=== PATIENT | female | born 1995 | race Caucasian/White ===

== ENCOUNTER 2018-01-16 18:00 | Emergency (ER) | payer MEDICAID ==
[2018-01-16] MEDS ORDERED: TYLENOL 325 MG PO STA (18:41)
--- NOTE | 2018-01-16 18:41 | ERPHSYRPT ---
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 Triage Nursing Assessment: pt is aox3, pupils perrl, resps easy and non labored , pt afebrile, slight swelling noted to the distal right ankle. pedal pulses are strong and regular bilat. cap refill < 3 seconds. pt sensation intact to bilat lower extremities. skin is pink warm dry. ROM is limited due to pain. Physician History: PATIENT IS 5 WEEKS GESTATION SLIPPED IN HER DRIVEWAY, FELL AND SUSTAINED INJURY TO OUTER ASPECT TO RIGHT ANKLE AND MID TO DISTAL DOWNS, 2 HOURS PRIOR TO ARRIVAL. HAS PAIN UPON WEIGHT BEARING. DENIES HEAD, NECK OR BACK INJURY. Method of Injury: twisted Occurred: just prior to arrival Quality: constant Severity of Pain-Max: moderate Severity of Pain-Current: moderate Lower Extremities Pain: leg: right, ankle: right Modifying Factors: Improves With: movement Associated Symptoms: unable to bear weight Allergies/Adverse Reactions: latex Allergy (Verified 01/16/18 18:21) Hx Tetanus, Diphtheria Vaccination/Date Given: No Hx Influenza Vaccination/Date Given: No Hx Pneumococcal Vaccination/Date Given: No Immunizations Up to Date: Yes - Review of Systems Constitutional: No Fever, No Chills Eyes: No Symptoms Ears, Nose, & Throat: No Symptoms Respiratory: No Cough, No Dyspnea Cardiac: No Chest Pain, No Edema, No Syncope Abdominal/Gastrointestinal: No Abdominal Pain, No Nausea, No Vomiting, No Diarrhea Genitourinary Symptoms: No Dysuria Musculoskeletal: Injury, Joint Pain, Joint Swelling, No Back Pain, No Neck Pain Skin: No Rash Neurological: No Dizziness, No Focal Weakness, No Sensory Changes Psychological: No Symptoms Endocrine: No Symptoms All Other Systems: Reviewed and Negative - Past Medical History Pertinent Past Medical History: Yes Endocrine Medical History: Hypoglycemia - Past Surgical History Past Surgical History: Yes Female Surgical History: Section - Social History Smoking Status: Never smoker Drug Use: none Patient Lives Alone: No - Female History Hx Now: Yes (5 wks ) - Nursing Vital Signs Nursing Vital Signs: Initial Vital Signs Temperature 98.1 F 01/16/18 18:08 Pulse Rate 83 01/16/18 18:08 Respiratory Rate 20 01/16/18 18:08 Blood Pressure 110/65 01/16/18 18:08 O2 Sat by Pulse Oximetry 99 01/16/18 18:08 Pain Scale Pain Intensity 8 - Physical Exam General Appearance: no apparent distress Ankle Exam: right ankle: limited range of motion, soft tissue tenderness, swelling (PERILATERAL MALLEOLUS, NEGATIVE JOINT LAXITY , RIGHT PEDIS PULSE 2+) Mental Status Exam: alert SpO2: 99 Oxygen Delivery: Room Air - Radiology Exams Right Ankle X-ray Interpretation: Interpreted by me (SOFT TISSUE SWELLING, OLD TINY AVULSION FRACTURE RIGHT MEDAIL MALLEOLUS) Ordered Tests: Active Orders 24 hr Category Date Time Status Crutches STAT Care 01/16/18 19:26 Active Splint STAT Care 01/16/18 19:26 Active ANKLE (3 VIEWS) Stat Exams 01/16/18 18:35 Taken LOWER LEG Stat Exams 01/16/18 18:37 Taken Medication Summary Discontinued Medications Generic Name Dose Route Start Last Admin Trade Name Freq PRN Reason Stop Dose Admin Acetaminophen 650 mg 01/16/18 18:41 01/16/18 18:46 Tylenol 325 Mg PO 01/16/18 18:42 650 mg STAT STA Administration Acetaminophen Confirm 01/16/18 18:45 Tylenol 325 Mg Administered 01/16/18 18:46 Dose 650 mg .ROUTE .STK-MED ONE - Progress Progress: improved Progress Note: 01/16/18 20:16 ADMINISTERED TYLENOL 650MG ORALLY, APPLICATION VELCRO ANKLE SPLINT, FITTED FOR CRUTCHES Counseled pt/family regarding: diagnosis, need for follow-up, rad results - Departure Time of Disposition: 20:20 Departure Disposition: Home Clinical Impression: RIGHT ANKLE STRAIN Condition: Stable Critical Care Time: No Referrals: KM LAZCANO [Primary Care Provider] - Additional Instructions: TYLENOL EVERY 4 HOURS NEEDED FOR PAIN. AMBULATE NONWEIGHT BEARING RIGHT FOOT FOR 5-7 DAYS, ELEVATE FOOT AND APPLY ICE BELOW AND ABOVE ANKLE SWELLING EVERY 4 HOURS, 30 MINUTES FOR 48 HOURS. CONSULT YOUR PRIMARY CARE PROVIDER FOR FOLLOWUP IN 1 WEEK.
[2018-01-16] MEDS ORDERED: TYLENOL 325 MG ONE (18:45)
[2018-01-16 20:25] VITALS: BP 128/93; PULSE 80; O2SAT 98
--- NOTE | 2018-01-16 21:06 | XRAY ---
Indication: Pain and swelling following fall. Comparison: None 2 views of the right lower leg obtained. No bony, articular, or soft tissue abnormalities.
--- NOTE | 2018-01-16 21:08 | XRAY ---
Indication: Pain and swelling following fall. Comparison: None 3 views of the right ankle demonstrates medial malleolar tip accessory ossicle and mild soft tissue swelling. No other bony, articular, or soft tissue abnormalities.
== END 2018-01-16 20:27 | disposition home or self-care (01) ==
LOC: ED 18:00
DX: S96.911A Strain of unspecified muscle and tendon at ankle and foot level, right foot, initial encounter (principal); W01.0XXA Fall on same level from slipping, tripping and stumbling without subsequent striking against object, initial encounter
CPT/HCPCS: 73590; 73610; 99283; A9270-GY

== ENCOUNTER 2023-10-13 08:55 | Observation (INO) | payer OTHER ==
[2023-10-13] MEDS ORDERED: Sodium Chloride 0.9% 1000 ML 1,000 ML IV STA (09:20)
[2023-10-13] MEDS ORDERED: Zofran 4 MG/2 ML VIAL IV ONE (09:20)
[2023-10-13] MEDS ORDERED: TORAdol 30 mg Injection IV ONE (09:22)
[2023-10-13] MEDS ORDERED: Zofran 4 MG/2 ML VIAL ONE (09:29)
[2023-10-13] MEDS ORDERED: Sodium Chloride 0.9% 1000 ML 1,000 ML ONE ×2 (09:30→10:52)
[2023-10-13] MEDS ORDERED: TORAdol 30 mg Injection ONE (09:30)
[2023-10-13 09:37] LABS: Absolute Neutrophil Ct (ANC) 10.33 x10^3/uL (1.4-6.9); BASOPHIL % 0.2 % (0.0-0.4); Basophil (Absolute #) 0.02 x10^3/uL (0-0.4); Eosinophil (Absolute #) 0 x10^3/uL (0-0.5); Hemoglobin 13.7 g/dL (12.0-16.0); IMMATURE GRAN # 0.05 x10^3u/L (0.00-0.03); IMMATURE GRAN % 0.4 % (0.00-0.4); Lymphocyte (Absolute #) 0.39 x10^3/uL (1.0-4.6); Lymphocytes % 3.4 % (24.0-44.0); Mean Cell Volume 102.5 fL (78-100); Mean Corpuscular Hemoglobin 34.3 pg (26-32); Mean Corpuscular Hgb Concent. 33.4 g/dL (32-36); Mean Platelet Volume 10.6 fL (7.5-11.0); Monocyte (Absolute #) 0.63 x10^3/uL (0.0-1.3); Monocytes % 5.5 % (0.0-12.0); Neutrophil % 90.5 % (36.0-66.0); Platelet Count 179 x10^3/uL (150-450); Red Cell Distribution Width 12.4 % (11.5-14.0); White Blood Count 11.4 x10^3/uL (4.0-10.5)
[2023-10-13 09:51] LABS: ALBUMIN 3.8 g/dL (3.5-5.0); ANION GAP 11.9 MEQ/L (5-15); BILIRUBIN,TOTAL 1.3 mg/dL (0.2-1.3); Calcium 8.7 mg/dL (8.4-10.2); Creatinine 1 1.04 mg/dL (0.52-1.04); EST GLOMERULAR FILTRATION RATE 75.6 ML/MIN; Potassium 3.4 mmol/L (3.5-5.1); Total Protein 6.9 g/dL (6.3-8.2)
[2023-10-13 10:14] LABS: INFLUENZA A NEGATIVE (NEGATIVE); INFLUENZA B NEGATIVE (NEGATIVE); RESPIRATORY SYNCTIAL VIRUS NEGATIVE (NEGATIVE); SARS-CoV-2 Xpert Express NEGATIVE (NEGATIVE)
[2023-10-13 11:06] LABS: HCG SERUM TEST NEGATIVE (NEGATIVE)
[2023-10-13] MEDS ORDERED: Sodium Chloride 0.9% 1000 ML 1,000 ML IV SCH (11:15)
--- NOTE | 2023-10-13 12:15 | XRAY ---
Indication: Left abdomen pain. Nausea and vomiting. Multiple contiguous axial images obtained through abdomen and pelvis without contrast. Comparison: None Lung bases demonstrate minimal dependent atelectasis. Heart not enlarged. Noncontrasted stomach and bowel loops appear nonobstructed. Appendix not visualized. Spleen is enlarged measuring 13.7 cm. No free fluid/air. Left kidney demonstrates 1.3 cm nonobstructing calculus inferiorly. Also left renal edema with minimal perinephric stranding favoring underlying nephritis. Remaining liver, gallbladder, pancreas, spleen, adrenal glands, kidneys, ureters, bladder, uterus, and aorta are unremarkable for noncontrast exam. Osseous structures intact. Impression: 1. Left renal edema with stranding. Rule out nephritis. Also nonobstructing left renal calculus. 2. Incidental splenomegaly. 3. Remaining CT abdomen/pelvis without contrast exam is negative.
--- NOTE | 2023-10-13 12:27 | ERPHSYRPT ---
- History of Present Illness Time Seen by Provider: 10/13/23 09:10 Historian: patient Exam Limitations: no limitations Patient Subjective Stated Complaint: abdominal pain Triage Nursing Assessment: patient reports headache started 10/12/23 around noon then soon after started having nausea and vomiting, no diarrhea. has been vomiting intermittently ever since Physician History: Patient is a 28-year-old female presents to emergency department for evaluation of nausea vomiting x 2 days. Patient now complains of pain to her left flank. Pain described as an ache that is localized. No radiation. No specific worsening or improving factors. Patient reports symptoms as intermittent. Patient denies a history of the same. Patient states she has been feeling "warm" no objective fevers. Symptoms are moderate in intensity. No specific worsening improving factors. Patient voices no other complaints or concerns at this time. Portions of this note were created with voice recognition technology. There may be grammatical, spelling, punctuation or sound alike errors. Timing/Duration: day(s) (2 days ago) Activities at Onset: none Quality: aching Abdominal Pain Onset Location: flank Pain Radiation: no radiation Severity of Pain-Max: moderate Severity of Pain-Current: mild Modifying Factors: Improves With: nothing Associated Symptoms: nausea, vomiting Previous symptoms: no prior history Allergies/Adverse Reactions: latex Allergy (Verified 10/13/23 09:12) Home Medications: No Reportable Medications [No Reported Medications] 10/13/23 [History] Hx Tetanus, Diphtheria Vaccination/Date Given: No Hx Influenza Vaccination/Date Given: No Hx Pneumococcal Vaccination/Date Given: No Travel Risk - International Travel Have you traveled outside of the country in past 3 weeks: No - Coronavirus Screening Are you exhibiting any of the following symptoms?: Yes Symptoms: Vomiting/Diarrhea, Headaches/Body Aches/Fatigue Close contact with a COVID-19 positive Pt in past 14-21 Days: No - Vaccine Status Have you recieved a Covid-19 vaccination: No - Review of Systems Constitutional: No Symptoms, No Fever, No Chills Eyes: No Symptoms Ears, Nose, & Throat: No Symptoms Respiratory: No Symptoms, No Cough, No Dyspnea Cardiac: No Symptoms, No Chest Pain, No Edema, No Syncope Abdominal/Gastrointestinal: No Symptoms, No Abdominal Pain, No Nausea, No Vomiting, No Diarrhea Genitourinary Symptoms: No Symptoms, No Dysuria Musculoskeletal: No Symptoms, No Back Pain, No Neck Pain Skin: No Symptoms, No Rash Neurological: No Symptoms, No Dizziness, No Focal Weakness, No Sensory Changes Psychological: No Symptoms Endocrine: No Symptoms Hematologic/Lymphatic: No Symptoms Immunological/Allergic: No Symptoms All Other Systems: Reviewed and Negative - Past Medical History Pertinent Past Medical History: Yes Endocrine Medical History: Hypoglycemia - Past Surgical History Past Surgical History: Yes Female Surgical History: Section - Social History Smoking Status: Never smoker Exposure to second hand smoke: No Drug Use: none Patient Lives Alone: No - Female History Hx Now: No - Nursing Vital Signs Nursing Vital Signs: Initial Vital Signs Temperature 100 F 10/13/23 09:01 Pulse Rate 116 H 10/13/23 09:01 Respiratory Rate 18 10/13/23 09:01 Blood Pressure 117/80 10/13/23 09:01 O2 Sat by Pulse Oximetry 96 10/13/23 09:01 Pain Scale Pain Intensity 8 - Physical Exam General Appearance: no apparent distress, alert Eye Exam: PERRL/EOMI, eyes nml inspection Ears, Nose, Throat Exam: normal ENT inspection, pharynx normal, moist mucous membranes Neck Exam: normal inspection, non-tender, supple, full range of motion Respiratory Exam: normal breath sounds, lungs clear, airway intact, No respiratory distress Cardiovascular Exam: regular rate/rhythm, normal heart sounds, normal peripheral pulses Gastrointestinal/Abdomen Exam: soft, tenderness (Left CVA tenderness), No mass Back Exam: normal inspection, normal range of motion, No CVA tenderness, No vertebral tenderness Extremity Exam: normal inspection, normal range of motion, pelvis stable Neurologic Exam: alert, oriented x 3, cooperative, 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, normal mood/affect, nml cerebellar function, sensation nml, No motor deficits Skin Exam: normal color, warm, dry SpO2 Interpretation: normal SpO2: 97 O2 Delivery: Room Air - Course Nursing assessment & vital signs reviewed: Yes - CT Exams Abdomen/Pelvis CT Interpretation: Tele-radiologist Report (Enlarged spleen, appendix not seen, left kidney nephrolithiasis, left kidney edema with minimal associated stranding) Ordered Tests: Active Orders 24 hr Category Date Time Status IV Insertion STAT Care 10/13/23 09:20 Active ABDOMEN AND PELVIS W/0 CONTRAS [CT] Stat Exams 10/13/23 09:21 Completed CBC W DIFF Stat Lab 10/13/23 09:30 Completed CMP Stat Lab 10/13/23 09:30 Completed CULTURE,URINE Stat Lab 10/13/23 12:29 Received HCG QUALITATIVE, SERUM Stat Lab 10/13/23 09:30 Completed HCG QUALITATIVE, URINE Stat Lab 10/13/23 12:49 Completed LIPASE Stat Lab 10/13/23 09:30 Completed Lactic Acid Stat Lab 10/13/23 13:33 Ordered TROPONIN Q4H Lab 10/13/23 09:30 Completed TROPONIN Q4H Lab 10/13/23 13:30 Ordered TROPONIN Q4H Lab 10/13/23 17:30 Ordered UA W/RFX UR CULTURE Stat Lab 10/13/23 12:29 Completed Medication Summary Generic Name Dose Route Start Last Admin Trade Name Barrett PRN Reason Stop Dose Admin Sodium Chloride 1,000 mls @ 150 mls/hr 10/13/23 11:15 10/13/23 11:05 Sodium Chloride 0.9% 1000 Ml IV 11/12/23 11:14 150 mls/hr .Q6H40M ANETTE Administration Ceftriaxone Sodium/Dextrose 1 g in 50 mls @ 100 mls/hr 10/13/23 13:31 Rocephin 1 Gm-D5w 50 Ml Bag IV 10/13/23 14:00 STAT STA Discontinued Medications Generic Name Dose Route Start Last Admin Trade Name Barrett PRN Reason Stop Dose Admin Sodium Chloride 1,000 mls @ 999 mls/hr 10/13/23 09:20 10/13/23 13:18 Sodium Chloride 0.9% 1000 Ml IV 10/13/23 10:20 Infused .Q1H1M STA Infusion Sodium Chloride Confirm 10/13/23 09:30 Sodium Chloride 0.9% 1000 Ml Administered 10/13/23 09:31 Dose 1,000 mls @ ud .ROUTE .STK-MED ONE Sodium Chloride Confirm 10/13/23 10:52 Sodium Chloride 0.9% 1000 Ml Administered 10/13/23 10:53 Dose 1,000 mls @ ud .ROUTE .STK-MED ONE Ketorolac Tromethamine 30 mg 10/13/23 09:22 10/13/23 09:35 Ketorolac Tromethamine 30 Mg/Ml Inj IV 10/13/23 09:23 30 mg STAT ONE Administration Ketorolac Tromethamine Confirm 10/13/23 09:30 Ketorolac Tromethamine 30 Mg/Ml Inj Administered 10/13/23 09:31 Dose 30 mg .ROUTE .STK-LIANAI ONE Ondansetron HCl 4 mg 10/13/23 09:20 10/13/23 09:35 Ondansetron Hcl 4 Mg/2 Ml Vial IV 10/13/23 09:21 4 mg STAT ONE Administration Ondansetron HCl Confirm 10/13/23 09:29 Ondansetron Hcl 4 Mg/2 Ml Vial Administered 10/13/23 09:30 Dose 4 mg .ROUTE .K-MED ONE Lab/Rad Data: Laboratory Result Diagrams 10/13/23 09:30 10/13/23 09:30 Laboratory Results 10/13/23 10/13/23 10/13/23 Range/Units 12:49 12:29 09:30 WBC (4.0-10.5) x10^3/uL RBC (4.1-5.4) x10^6/uL Hgb (12.0-16.0) g/dL Hct (35-47) % MCV (78-100) fL MCH (26-32) pg MCHC (32-36) g/dL RDW (11.5-14.0) % Plt Count (150-450) x10^3/uL MPV (7.5-11.0) fL Gran % (36.0-66.0) % Immature Gran % (Auto) (0.00-0.4) % Nucleat RBC Rel Count (0.00-0.1) % Eos # (Auto) (0-0.5) x10^3/uL Immature Gran # (Auto) (0.00-0.03) x10^3u/L Absolute Lymphs (auto) (1.0-4.6) x10^3/uL Absolute Monos (auto) (0.0-1.3) x10^3/uL Absolute Nucleated RBC (0.00-0.01) x10^3u/L Lymphocytes % (24.0-44.0) % Monocytes % (0.0-12.0) % Eosinophils % (0.00-5.0) % Basophils % (0.0-0.4) % Absolute Granulocytes (1.4-6.9) x10^3/uL Basophils # (0-0.4) x10^3/uL Sodium (137-145) mmol/L Potassium (3.5-5.1) mmol/L Chloride (98-107) mmol/L Carbon Dioxide (22-30) mmol/L Anion Gap (5-15) MEQ/L BUN (7-17) mg/dL Creatinine (0.52-1.04) mg/dL Estimated GFR ML/MIN Glucose (74-106) mg/dL Calcium (8.4-10.2) mg/dL Total Bilirubin (0.2-1.3) mg/dL AST (14-36) U/L ALT (0-35) U/L Alkaline Phosphatase (38-126) U/L Troponin I (0.000-0.034) ng/mL Serum Total Protein (6.3-8.2) g/dL Albumin (3.5-5.0) g/dL Lipase (23-300) U/L Serum HCG, Qual NEGATIVE (NEGATIVE) Urine Color Yellow (Yellow) Urine Appearance Cloudy A (Clear) Urine pH 6.0 (4.6-8.0) Ur Specific [place] 1.010 (1.005-1.030) Urine Protein 30 (Negative) Urine Glucose (UA) Negative (Negative) mg/dL Urine Ketones 15 A (Negative) Urine Blood Moderate A (Negative) Urine Nitrite Positive A (Negative) Urine Bilirubin Negative (Negative) Urine Urobilinogen 1.0 A (0.2) mg/dL Ur Leukocyte Esterase Large A (Negative) U Hyaline Cast (Auto) 3-5 A (0-2) /LPF Urine Microscopic RBC 0-2 (0-5) /HPF Urine Microscopic WBC 51-100 A (0-5) /HPF Ur Epithelial Cells Few (None Seen) /HPF Urine Bacteria Many A (None Seen) /HPF Urine Culture Reflexed YES (NO) Urine HCG, Qual NEGATIVE (NEGATIVE) Influenza Type A Ag (NEGATIVE) Influenza Type B Ag (NEGATIVE) RSV (PCR) (NEGATIVE) SARS-CoV-2 (PCR) (NEGATIVE) 10/13/23 10/13/23 10/13/23 Range/Units 09:30 09:30 09:30 WBC (4.0-10.5) x10^3/uL RBC (4.1-5.4) x10^6/uL Hgb (12.0-16.0) g/dL Hct (35-47) % MCV (78-100) fL MCH (26-32) pg MCHC (32-36) g/dL RDW (11.5-14.0) % Plt Count (150-450) x10^3/uL MPV (7.5-11.0) fL Gran % (36.0-66.0) % Immature Gran % (Auto) (0.00-0.4) % Nucleat RBC Rel Count (0.00-0.1) % Eos # (Auto) (0-0.5) x10^3/uL Immature Gran # (Auto) (0.00-0.03) x10^3u/L Absolute Lymphs (auto) (1.0-4.6) x10^3/uL Absolute Monos (auto) (0.0-1.3) x10^3/uL Absolute Nucleated RBC (0.00-0.01) x10^3u/L Lymphocytes % (24.0-44.0) % Monocytes % (0.0-12.0) % Eosinophils % (0.00-5.0) % Basophils % (0.0-0.4) % Absolute Granulocytes (1.4-6.9) x10^3/uL Basophils # (0-0.4) x10^3/uL Sodium 135 L (137-145) mmol/L Potassium 3.4 L (3.5-5.1) mmol/L Chloride 108 H (98-107) mmol/L Carbon Dioxide 18 L (22-30) mmol/L Anion Gap 11.9 (5-15) MEQ/L BUN 9 (7-17) mg/dL Creatinine 1.04 (0.52-1.04) mg/dL Estimated GFR 75.6 ML/MIN Glucose 136 H (74-106) mg/dL Calcium 8.7 (8.4-10.2) mg/dL Total Bilirubin 1.30 (0.2-1.3) mg/dL AST 32 (14-36) U/L ALT 27 (0-35) U/L Alkaline Phosphatase 84 (38-126) U/L Troponin I < 0.012 (0.000-0.034) ng/mL Serum Total Protein 6.9 (6.3-8.2) g/dL Albumin 3.8 (3.5-5.0) g/dL Lipase 45 (23-300) U/L Serum HCG, Qual (NEGATIVE) Urine Color (Yellow) Urine Appearance (Clear) Urine pH (4.6-8.0) Ur Specific [place] (1.005-1.030) Urine Protein (Negative) Urine Glucose (UA) (Negative) mg/dL Urine Ketones (Negative) Urine Blood (Negative) Urine Nitrite (Negative) Urine Bilirubin (Negative) Urine Urobilinogen (0.2) mg/dL Ur Leukocyte Esterase (Negative) U Hyaline Cast (Auto) (0-2) /LPF Urine Microscopic RBC (0-5) /HPF Urine Microscopic WBC (0-5) /HPF Ur Epithelial Cells (None Seen) /HPF Urine Bacteria (None Seen) /HPF Urine Culture Reflexed (NO) Urine HCG, Qual (NEGATIVE) Influenza Type A Ag NEGATIVE (NEGATIVE) Influenza Type B Ag NEGATIVE (NEGATIVE) RSV (PCR) NEGATIVE (NEGATIVE) SARS-CoV-2 (PCR) NEGATIVE (NEGATIVE) 10/13/23 Range/Units 09:30 WBC 11.4 H (4.0-10.5) x10^3/uL RBC 4.00 L (4.1-5.4) x10^6/uL Hgb 13.7 (12.0-16.0) g/dL Hct 41.0 (35-47) % MCV 102.5 H (78-100) fL MCH 34.3 H (26-32) pg MCHC 33.4 (32-36) g/dL RDW 12.4 (11.5-14.0) % Plt Count 179 (150-450) x10^3/uL MPV 10.6 (7.5-11.0) fL Gran % 90.5 H (36.0-66.0) % Immature Gran % (Auto) 0.4 (0.00-0.4) % Nucleat RBC Rel Count 0.0 (0.00-0.1) % Eos # (Auto) 0 (0-0.5) x10^3/uL Immature Gran # (Auto) 0.05 H (0.00-0.03) x10^3u/L Absolute Lymphs (auto) 0.39 L (1.0-4.6) x10^3/uL Absolute Monos (auto) 0.63 (0.0-1.3) x10^3/uL Absolute Nucleated RBC 0.00 (0.00-0.01) x10^3u/L Lymphocytes % 3.4 L (24.0-44.0) % Monocytes % 5.5 (0.0-12.0) % Eosinophils % 0.0 (0.00-5.0) % Basophils % 0.2 (0.0-0.4) % Absolute Granulocytes 10.33 H (1.4-6.9) x10^3/uL Basophils # 0.02 (0-0.4) x10^3/uL Sodium (137-145) mmol/L Potassium (3.5-5.1) mmol/L Chloride (98-107) mmol/L Carbon Dioxide (22-30) mmol/L Anion Gap (5-15) MEQ/L BUN (7-17) mg/dL Creatinine (0.52-1.04) mg/dL Estimated GFR ML/MIN Glucose (74-106) mg/dL Calcium (8.4-10.2) mg/dL Total Bilirubin (0.2-1.3) mg/dL AST (14-36) U/L ALT (0-35) U/L Alkaline Phosphatase (38-126) U/L Troponin I (0.000-0.034) ng/mL Serum Total Protein (6.3-8.2) g/dL Albumin (3.5-5.0) g/dL Lipase (23-300) U/L Serum HCG, Qual (NEGATIVE) Urine Color (Yellow) Urine Appearance (Clear) Urine pH (4.6-8.0) Ur Specific [place] (1.005-1.030) Urine Protein (Negative) Urine Glucose (UA) (Negative) mg/dL Urine Ketones (Negative) Urine Blood (Negative) Urine Nitrite (Negative) Urine Bilirubin (Negative) Urine Urobilinogen (0.2) mg/dL Ur Leukocyte Esterase (Negative) U Hyaline Cast (Auto) (0-2) /LPF Urine Microscopic RBC (0-5) /HPF Urine Microscopic WBC (0-5) /HPF Ur Epithelial Cells (None Seen) /HPF Urine Bacteria (None Seen) /HPF Urine Culture Reflexed (NO) Urine HCG, Qual (NEGATIVE) Influenza Type A Ag (NEGATIVE) Influenza Type B Ag (NEGATIVE) RSV (PCR) (NEGATIVE) SARS-CoV-2 (PCR) (NEGATIVE) - Progress Progress: improved Progress Note: 28-year-old female presents to our ED with left-sided flank pain. Physical exam reveals left-sided CVA tenderness. Laboratory workup reveals a slight leukocytosis of 11.4. CT abdomen pelvis reveals a left nephrolithiasis as well as edematous left kidney with associated fat stranding. Urinalysis significant for urinary tract infection, pyuria leukocyte Estrace positive nitrite positive and hematuria. Patient received a dose of Rocephin in our ED. Case discussed with Dr. Crowley who accepts admission to observation at 1:45 PM. Plan of care discussed with patient. She agrees to admission to [facility] for further evaluation and treatment. Patient states her pain is well-controlled at this time. Toradol administered for pain control Portions of this note were created with voice recognition technology. There may be grammatical, spelling, punctuation or sound alike errors Complexity of problem addressed is moderate acute complicated No critical care time Complexity of data reviewed and analyzed is extensive. Test ordered test reviewed. Results analyzed and correlated clinically. Management discussed with hospitalist who accepts admission to observation. Risk of complication and a risk of morbidity/mortality of patient management is high. Patient requires hospitalization for further evaluation and treatment of her pyelonephritis. Vital stable. Time spent to admit patient is approximately 20 minutes. Plan of care established for shared decision making. Portions of this note were created with voice recognition technology. There may be grammatical, spelling, punctuation or sound alike errors 10/13/23 13:47 Counseled pt/family regarding: lab results, diagnosis, rad results (Colon at 1:45 PM) - Departure Departure Disposition: Observation Clinical Impression: Splenomegaly, Left nephrolithiasis, Left renal edema, Nausea and vomiting, Pyelonephritis, Tachycardia Condition: Stable Critical Care Time: No Referrals: DOCTOR,NO FAMILY [Primary Care Provider] - Follow up/PCP as directed
[2023-10-13 12:53] LABS: HCG URINE TEST NEGATIVE (NEGATIVE)
[2023-10-13 12:57] LABS: ADD URINE CULTURE? YES (NO); Appearance Cloudy (Clear); Bacteria Many /HPF (None Seen); Bilirubin Negative (Negative); Blood Moderate (Negative); Epithelial Cells Few /HPF (None Seen); Glucose, Urine Negative (Negative); Ketones 15 (Negative); Leukocyte Esterase Large (Negative); Nitrite Positive (Negative); Protein,Urine Dip 30 (Negative); RBC 0-2 /HPF (0-5); WBC 51-100 /HPF (0-5)
[2023-10-13] MEDS ORDERED: ROCEPHIN 1 Gm-D5w 50 ml Bag** 1 G/50 ML IVPB IV STA (13:31)
[2023-10-13] MEDS ORDERED: ROCEPHIN 1 Gm-D5w 50 ml Bag** 1 G/50 ML IVPB IV ONE (14:18)
--- NOTE | 2023-10-13 14:27 | PCM.HP ---
History of Present Illness - Chief Complaint Chief Complaint: nausea, vomiting Date: 10/13/23 History of Present Illness: Ms. Zelaya is a 28 year old female with a pmhx of who presented to ED 10/13/23 with complaints of two day history of nausea, vomiting, fever/chills, and abdominal pain. Patient reports pain is in the LUQ with radiation to the left flank, moderate in intensity. No aggravating factors. Pain medications have helped some. She denies urinary frequency, hematuria, or dysuria. Denies cough, sob, cp, RIVERA, dizziness,or diarrhea. In ED, patient febrile and tachycardic. CT of the abd/pelvis demonstrating left renal edema with stranding. Also nonobstructing left renal calculus. Incidental splenomegaly. Lab findings remarkable for leukocytosis with WBC at 11.4, mild hyponatremia at 135, hypokalemia at 3.4, and carbon dioxide at 18. UA suspicious for infection. Patient given 1 liter fluid bolus, Ceftriaxone, and zofran. - Review of Systems Constitutional: Fever, Chills, Weakness Eyes: No Symptoms Ears, Nose, & Throat: No Symptoms Respiratory: No Symptoms Cardiac: No Symptoms Abdominal/Gastrointestinal: Abdominal Pain, Nausea, Vomiting Genitourinary Symptoms: No Symptoms Musculoskeletal: No Symptoms Skin: No Symptoms Neurological: No Symptoms Psychological: No Symptoms Endocrine: No Symptoms Hematologic/Lymphatic: No Symptoms Immunological/Allergic: No Symptoms Medications & Allergies Home Medications: Home Medication List No Reportable Medications [No Reported Medications] 10/13/23 [History Confirmed 10/13/23] Allergies/Adverse Reactions: Allergies Allergy/AdvReac Type Severity Reaction Status Date / Time latex Allergy Verified 10/13/23 14:35 - Past Medical History Past Medical History: Yes Endocrine Medical History: Hypoglycemia - Female History Are you now?: No - Past Surgical History Past Surgical History: Yes Female Surgical History: Section - Social History Smoking Status: Never smoker Exposure to second hand smoke: No Alcohol: None Drug Use: none - Physical Exam Vital Signs: Vital Signs - 24 hr Temp Pulse Resp BP BP Pulse Ox 10/13/23 13:50 97 10/13/23 13:00 109/70 95 10/13/23 12:30 96/61 97 10/13/23 12:00 102/64 97 10/13/23 11:50 96 10/13/23 11:46 96 10/13/23 11:00 105/64 96 10/13/23 10:30 105/63 10/13/23 10:00 102/71 10/13/23 09:30 113/80 10/13/23 09:10 117/80 96 10/13/23 09:01 100 F 116 H 18 117/80 96 General Appearance: no apparent distress Neurologic Exam: alert, oriented x 3, cooperative Eye Exam: PERRL/EOMI Ears, Nose, Throat Exam: normal ENT inspection Neck Exam: normal inspection Respiratory Exam: normal breath sounds, lungs clear Cardiovascular Exam: regular rate/rhythm, normal heart sounds Gastrointestinal/Abdomen Exam: tenderness (TTP LUQ) Pelvic Exam: not done Rectal Exam: deferred Back Exam: CVA tenderness Extremity Exam: normal inspection Skin Exam: normal color Results - Labs Lab/Micro Results: Lab Results-Last 24 Hours 10/13/23 10/13/23 10/13/23 Range/Units 09:30 09:30 09:30 WBC 11.4 H (4.0-10.5) x10^3/uL RBC 4.00 L (4.1-5.4) x10^6/uL Hgb 13.7 (12.0-16.0) g/dL Hct 41.0 (35-47) % MCV 102.5 H (78-100) fL MCH 34.3 H (26-32) pg MCHC 33.4 (32-36) g/dL RDW 12.4 (11.5-14.0) % Plt Count 179 (150-450) x10^3/uL MPV 10.6 (7.5-11.0) fL Gran % 90.5 H (36.0-66.0) % Immature Gran % (Auto) 0.4 (0.00-0.4) % Nucleat RBC Rel Count 0.0 (0.00-0.1) % Eos # (Auto) 0 (0-0.5) x10^3/uL Immature Gran # (Auto) 0.05 H (0.00-0.03) x10^3u/L Absolute Lymphs (auto) 0.39 L (1.0-4.6) x10^3/uL Absolute Monos (auto) 0.63 (0.0-1.3) x10^3/uL Absolute Nucleated RBC 0.00 (0.00-0.01) x10^3u/L Lymphocytes % 3.4 L (24.0-44.0) % Monocytes % 5.5 (0.0-12.0) % Eosinophils % 0.0 (0.00-5.0) % Basophils % 0.2 (0.0-0.4) % Absolute Granulocytes 10.33 H (1.4-6.9) x10^3/uL Basophils # 0.02 (0-0.4) x10^3/uL Sodium 135 L (137-145) mmol/L Potassium 3.4 L (3.5-5.1) mmol/L Chloride 108 H (98-107) mmol/L Carbon Dioxide 18 L (22-30) mmol/L Anion Gap 11.9 (5-15) MEQ/L BUN 9 (7-17) mg/dL Creatinine 1.04 (0.52-1.04) mg/dL Estimated GFR 75.6 ML/MIN Glucose 136 H (74-106) mg/dL Lactic Acid (0.4-2.0) Calcium 8.7 (8.4-10.2) mg/dL Total Bilirubin 1.30 (0.2-1.3) mg/dL AST 32 (14-36) U/L ALT 27 (0-35) U/L Alkaline Phosphatase 84 (38-126) U/L Troponin I < 0.012 (0.000-0.034) ng/mL Serum Total Protein 6.9 (6.3-8.2) g/dL Albumin 3.8 (3.5-5.0) g/dL Lipase 45 (23-300) U/L Serum HCG, Qual (NEGATIVE) Urine Color (Yellow) Urine Appearance (Clear) Urine pH (4.6-8.0) Ur Specific [place] (1.005-1.030) Urine Protein (Negative) Urine Glucose (UA) (Negative) mg/dL Urine Ketones (Negative) Urine Blood (Negative) Urine Nitrite (Negative) Urine Bilirubin (Negative) Urine Urobilinogen (0.2) mg/dL Ur Leukocyte Esterase (Negative) U Hyaline Cast (Auto) (0-2) /LPF Urine Microscopic RBC (0-5) /HPF Urine Microscopic WBC (0-5) /HPF Ur Epithelial Cells (None Seen) /HPF Urine Bacteria (None Seen) /HPF Urine Culture Reflexed (NO) Urine HCG, Qual (NEGATIVE) Influenza Type A Ag (NEGATIVE) Influenza Type B Ag (NEGATIVE) RSV (PCR) (NEGATIVE) SARS-CoV-2 (PCR) (NEGATIVE) 10/13/23 10/13/23 10/13/23 Range/Units 09:30 09:30 12:29 WBC (4.0-10.5) x10^3/uL RBC (4.1-5.4) x10^6/uL Hgb (12.0-16.0) g/dL Hct (35-47) % MCV (78-100) fL MCH (26-32) pg MCHC (32-36) g/dL RDW (11.5-14.0) % Plt Count (150-450) x10^3/uL MPV (7.5-11.0) fL Gran % (36.0-66.0) % Immature Gran % (Auto) (0.00-0.4) % Nucleat RBC Rel Count (0.00-0.1) % Eos # (Auto) (0-0.5) x10^3/uL Immature Gran # (Auto) (0.00-0.03) x10^3u/L Absolute Lymphs (auto) (1.0-4.6) x10^3/uL Absolute Monos (auto) (0.0-1.3) x10^3/uL Absolute Nucleated RBC (0.00-0.01) x10^3u/L Lymphocytes % (24.0-44.0) % Monocytes % (0.0-12.0) % Eosinophils % (0.00-5.0) % Basophils % (0.0-0.4) % Absolute Granulocytes (1.4-6.9) x10^3/uL Basophils # (0-0.4) x10^3/uL Sodium (137-145) mmol/L Potassium (3.5-5.1) mmol/L Chloride (98-107) mmol/L Carbon Dioxide (22-30) mmol/L Anion Gap (5-15) MEQ/L BUN (7-17) mg/dL Creatinine (0.52-1.04) mg/dL Estimated GFR ML/MIN Glucose (74-106) mg/dL Lactic Acid (0.4-2.0) Calcium (8.4-10.2) mg/dL Total Bilirubin (0.2-1.3) mg/dL AST (14-36) U/L ALT (0-35) U/L Alkaline Phosphatase (38-126) U/L Troponin I (0.000-0.034) ng/mL Serum Total Protein (6.3-8.2) g/dL Albumin (3.5-5.0) g/dL Lipase (23-300) U/L Serum HCG, Qual NEGATIVE (NEGATIVE) Urine Color Yellow (Yellow) Urine Appearance Cloudy A (Clear) Urine pH 6.0 (4.6-8.0) Ur Specific [place] 1.010 (1.005-1.030) Urine Protein 30 (Negative) Urine Glucose (UA) Negative (Negative) mg/dL Urine Ketones 15 A (Negative) Urine Blood Moderate A (Negative) Urine Nitrite Positive A (Negative) Urine Bilirubin Negative (Negative) Urine Urobilinogen 1.0 A (0.2) mg/dL Ur Leukocyte Esterase Large A (Negative) U Hyaline Cast (Auto) 3-5 A (0-2) /LPF Urine Microscopic RBC 0-2 (0-5) /HPF Urine Microscopic WBC 51-100 A (0-5) /HPF Ur Epithelial Cells Few (None Seen) /HPF Urine Bacteria Many A (None Seen) /HPF Urine Culture Reflexed YES (NO) Urine HCG, Qual (NEGATIVE) Influenza Type A Ag NEGATIVE (NEGATIVE) Influenza Type B Ag NEGATIVE (NEGATIVE) RSV (PCR) NEGATIVE (NEGATIVE) SARS-CoV-2 (PCR) NEGATIVE (NEGATIVE) 10/13/23 10/13/23 10/13/23 Range/Units 12:49 13:33 13:40 WBC (4.0-10.5) x10^3/uL RBC (4.1-5.4) x10^6/uL Hgb (12.0-16.0) g/dL Hct (35-47) % MCV (78-100) fL MCH (26-32) pg MCHC (32-36) g/dL RDW (11.5-14.0) % Plt Count (150-450) x10^3/uL MPV (7.5-11.0) fL Gran % (36.0-66.0) % Immature Gran % (Auto) (0.00-0.4) % Nucleat RBC Rel Count (0.00-0.1) % Eos # (Auto) (0-0.5) x10^3/uL Immature Gran # (Auto) (0.00-0.03) x10^3u/L Absolute Lymphs (auto) (1.0-4.6) x10^3/uL Absolute Monos (auto) (0.0-1.3) x10^3/uL Absolute Nucleated RBC (0.00-0.01) x10^3u/L Lymphocytes % (24.0-44.0) % Monocytes % (0.0-12.0) % Eosinophils % (0.00-5.0) % Basophils % (0.0-0.4) % Absolute Granulocytes (1.4-6.9) x10^3/uL Basophils # (0-0.4) x10^3/uL Sodium (137-145) mmol/L Potassium (3.5-5.1) mmol/L Chloride (98-107) mmol/L Carbon Dioxide (22-30) mmol/L Anion Gap (5-15) MEQ/L BUN (7-17) mg/dL Creatinine (0.52-1.04) mg/dL Estimated GFR ML/MIN Glucose (74-106) mg/dL Lactic Acid 0.6 (0.4-2.0) Calcium (8.4-10.2) mg/dL Total Bilirubin (0.2-1.3) mg/dL AST (14-36) U/L ALT (0-35) U/L Alkaline Phosphatase (38-126) U/L Troponin I < 0.012 (0.000-0.034) ng/mL Serum Total Protein (6.3-8.2) g/dL Albumin (3.5-5.0) g/dL Lipase (23-300) U/L Serum HCG, Qual (NEGATIVE) Urine Color (Yellow) Urine Appearance (Clear) Urine pH (4.6-8.0) Ur Specific [place] (1.005-1.030) Urine Protein (Negative) Urine Glucose (UA) (Negative) mg/dL Urine Ketones (Negative) Urine Blood (Negative) Urine Nitrite (Negative) Urine Bilirubin (Negative) Urine Urobilinogen (0.2) mg/dL Ur Leukocyte Esterase (Negative) U Hyaline Cast (Auto) (0-2) /LPF Urine Microscopic RBC (0-5) /HPF Urine Microscopic WBC (0-5) /HPF Ur Epithelial Cells (None Seen) /HPF Urine Bacteria (None Seen) /HPF Urine Culture Reflexed (NO) Urine HCG, Qual NEGATIVE (NEGATIVE) Influenza Type A Ag (NEGATIVE) Influenza Type B Ag (NEGATIVE) RSV (PCR) (NEGATIVE) SARS-CoV-2 (PCR) (NEGATIVE) - Radiology Impressions Radiology Exams & Impressions: Radiology Procedures Category Date Time Status ABDOMEN AND PELVIS W/0 CONTRAS [CT] Stat Exams 10/13/23 09:21 Completed Assessment/Plan (1) Pyelonephritis Current Visit: Yes Status: Acute Assessment & Plan: -Urine culture pending -Ceftriaxone started in ED, will continue -CT abd/pelvis showing left renal edema with stranding, non-obstructing left renal calculus, and incidental splenomegaly. -NS @ 125ml/hr -Monitor I&O Code(s): N12 - TUBULO-INTERSTITIAL NEPHRITIS, NOT SPCF ACUTE OR CHRONIC (2) Leukocytosis Current Visit: Yes Status: Acute Assessment & Plan: Most likely secondary to pyelonephritis, start empiric antibiotic, follow cultures Code(s): D72.829 - ELEVATED WHITE BLOOD CELL COUNT, UNSPECIFIED (3) Acidosis Current Visit: Yes Status: Acute Assessment & Plan: -secondary to gastrointestinal loss/infection -carbon dioxide at 18 -sodium bicarb -IVF Code(s): E87.20 - ACIDOSIS, UNSPECIFIED (4) Hypokalemia due to excessive gastrointestinal loss of potassium Current Visit: Yes Status: Acute Assessment & Plan: -Secondary to gastrointestinal loss -Will replenish -Tele -Monitor renal/lytes daily -treat underlying N/V with anti-emetics Code(s): E87.6 - HYPOKALEMIA (5) Left nephrolithiasis Current Visit: Yes Status: Acute Assessment & Plan: -noted on CT scan, 1.3 cm, nonobstructing Code(s): N20.0 - CALCULUS OF KIDNEY (6) Nausea and vomiting Current Visit: Yes Status: Acute Assessment & Plan: -Zofran, compazine prn Code(s): R11.2 - NAUSEA WITH VOMITING, UNSPECIFIED (7) Splenomegaly Current Visit: Yes Status: Acute Assessment & Plan: -noted on CT, measuring 13.7cm -mono spot -PLT WNL -Repeat US as OP Code(s): R16.1 - SPLENOMEGALY, NOT ELSEWHERE CLASSIFIED
[2023-10-13] MEDS ORDERED: Zofran 4 MG/2 ML VIAL IV PRN (14:35)
[2023-10-13] MEDS ORDERED: Klor Con PO ONE (14:39)
[2023-10-13] MEDS ORDERED: Compazine 10 MG/2 ML IV PRN (14:40)
[2023-10-13] MEDS: TYLENOL 325 MG PO PRN (15:53)
[2023-10-13] MEDS: Sodium Chloride 0.9% 1000 ML 1,000 ML IV SCH ×2 (15:55→20:45)
[2023-10-13] MEDS: SODIUM BICARBONATE PO SCH (22:27)
[2023-10-14 04:59] LABS: BASOPHIL % 0.3 % (0.0-0.4); Basophil (Absolute #) 0.02 x10^3/uL (0-0.4); Eosinophil % 0.8 % (0.00-5.0); Eosinophil (Absolute #) 0.05 x10^3/uL (0-0.5); Hematocrit 39.4 % (35-47); Hemoglobin 12.9 g/dL (12.0-16.0); IMMATURE GRAN # 0.02 x10^3u/L (0.00-0.03); IMMATURE GRAN % 0.3 % (0.00-0.4); Lymphocyte (Absolute #) 0.97 x10^3/uL (1.0-4.6); Mean Cell Volume 104.5 fL (78-100); Mean Corpuscular Hemoglobin 34.2 pg (26-32); Mean Corpuscular Hgb Concent. 32.7 g/dL (32-36); Mean Platelet Volume 11.1 fL (7.5-11.0); Monocyte (Absolute #) 0.71 x10^3/uL (0.0-1.3); Neutrophil % 72.6 % (36.0-66.0); Platelet Count 166 x10^3/uL (150-450); Red Blood Count 3.77 x10^6/uL (4.1-5.4); Red Cell Distribution Width 12.5 % (11.5-14.0); White Blood Count 6.5 x10^3/uL (4.0-10.5)
[2023-10-14] MEDS: Sodium Chloride 0.9% 1000 ML 1,000 ML IV SCH ×3 (04:59→21:50)
--- NOTE | 2023-10-14 05:12 | PCM.NOTE ---
Date and Time: 10/14/23 0511 Subjective Assessment: Ms. Zelaya is a 28 year old female with a pmhx of prolapsed heart valve and possible clotting disorder per patient (hemorrhage s/p csection x 2), who presented to ED 10/13/23 with complaints of two day history of nausea, vomiting, fever/chills, and abdominal pain. Patient reports pain is in the LUQ with radi ation to the left flank, moderate in intensity. No aggravating factors. Pain medications have helped some. She denies urinary frequency, hematuria, or dysuria. Denies cough, sob, cp, RIVERA, dizziness,or diarrhea. In ED, patient febrile and tachycardic. CT of the abd/pelvis demonstrating left renal edema with stranding. Also nonobstructing left renal calculus. Incidental splenomegaly. Lab findings remarkable for leukocytosis with WBC at 11.4, mild hyponatremia at 135, hypokalemia at 3.4, and carbon dioxide at 18. UA suspicious for infection. Patient given 1 liter fluid bolus, Ceftriaxone, and zofran. Admitted with acute pyelonephritis, plan for continued ceftriaxone pending ucult, anti-emetics, and IVF. 10/14/23 Met with patient bedside. Endorsing overall improvement, no more nausea or vomit ing but abdominal/flank pain still persists. She describes the pain as sharp and moderate in intensity, rating at 7/10 on numerical pain scale. She does state the pain is better than yesterday. She has been able to tolerate a diet. No urinary symptoms such as dysuria, hematuria, frequency, or burning. Was febrile overnight at 102. Plan for continued IV abx. Urine culture NGTD. Bicarb remains low. Denies cough, sob, cp, RIVERA, dizziness, N/V/D. - Review of Systems Constitutional: Fever Eyes: No Symptoms Ears, Nose, & Throat: No Symptoms Respiratory: No Symptoms Cardiac: No Symptoms Abdominal/Gastrointestinal: Abdominal Pain Genitourinary Symptoms: Flank Pain Musculoskeletal: No Symptoms Skin: No Symptoms Neurological: No Symptoms Psychological: No Symptoms Endocrine: No Symptoms Hematologic/Lymphatic: No Symptoms Immunological/Allergic: No Symptoms Objective Exam General Appearance: no apparent distress Neurologic Exam: alert, oriented x 3, cooperative Skin Exam: normal color Eye Exam: PERRL Ears, Nose, Throat Exam: normal ENT inspection Neck Exam: normal inspection Respiratory Exam: normal breath sounds, lungs clear Cardiovascular Exam: regular rate/rhythm, normal heart sounds Gastrointestinal/Abdomen Exam: tenderness (TTP LUQ/CVA) Extremity Exam: normal inspection Back Exam: CVA tenderness Pelvic Exam: deferred Rectal Exam: deferred OBJECTIVE DATA Vital Signs: Vital Signs - 24 hr Temp Pulse Resp BP BP Pulse Ox 10/14/23 03:42 100.0 F 87 17 110/57 97 10/14/23 00:00 99.5 F 102 H 18 120/55 97 10/13/23 19:50 97.9 F 72 17 120/63 95 10/13/23 14:56 97.8 F 83 18 105/69 96 10/13/23 14:24 97.8 F 83 18 105/96 96 10/13/23 13:50 97 10/13/23 13:00 109/70 95 10/13/23 12:30 96/61 97 10/13/23 12:00 102/64 97 10/13/23 11:50 96 10/13/23 11:46 96 10/13/23 11:00 105/64 96 10/13/23 10:30 105/63 10/13/23 10:00 102/71 10/13/23 09:30 113/80 10/13/23 09:10 117/80 96 10/13/23 09:01 100 F 116 H 18 117/80 96 Pain Assessment - Last Documented Pain Intensity 0 Pain Scale Used 0-10 Pain Scale Intake and Output: Intake & Output 10/11/23 10/12/23 10/13/23 10/14/23 11:59 11:59 11:59 11:59 Intake Total 2699 Balance 2699 Weight 97.2 kg 97.2 kg Lab Results: Lab Results-Last 24 Hours 10/13/23 10/13/23 10/13/23 Range/Units 09:30 09:30 09:30 WBC 11.4 H (4.0-10.5) x10^3/uL RBC 4.00 L (4.1-5.4) x10^6/uL Hgb 13.7 (12.0-16.0) g/dL Hct 41.0 (35-47) % MCV 102.5 H (78-100) fL MCH 34.3 H (26-32) pg MCHC 33.4 (32-36) g/dL RDW 12.4 (11.5-14.0) % Plt Count 179 (150-450) x10^3/uL MPV 10.6 (7.5-11.0) fL Gran % 90.5 H (36.0-66.0) % Immature Gran % (Auto) 0.4 (0.00-0.4) % Nucleat RBC Rel Count 0.0 (0.00-0.1) % Eos # (Auto) 0 (0-0.5) x10^3/uL Immature Gran # (Auto) 0.05 H (0.00-0.03) x10^3u/L Absolute Lymphs (auto) 0.39 L (1.0-4.6) x10^3/uL Absolute Monos (auto) 0.63 (0.0-1.3) x10^3/uL Absolute Nucleated RBC 0.00 (0.00-0.01) x10^3u/L Lymphocytes % 3.4 L (24.0-44.0) % Monocytes % 5.5 (0.0-12.0) % Eosinophils % 0.0 (0.00-5.0) % Basophils % 0.2 (0.0-0.4) % Absolute Granulocytes 10.33 H (1.4-6.9) x10^3/uL Basophils # 0.02 (0-0.4) x10^3/uL Sodium 135 L (137-145) mmol/L Potassium 3.4 L (3.5-5.1) mmol/L Chloride 108 H (98-107) mmol/L Carbon Dioxide 18 L (22-30) mmol/L Anion Gap 11.9 (5-15) MEQ/L BUN 9 (7-17) mg/dL Creatinine 1.04 (0.52-1.04) mg/dL Estimated GFR 75.6 ML/MIN Glucose 136 H (74-106) mg/dL Lactic Acid (0.4-2.0) Calcium 8.7 (8.4-10.2) mg/dL Magnesium (1.6-2.3) mg/dL Total Bilirubin 1.30 (0.2-1.3) mg/dL AST 32 (14-36) U/L ALT 27 (0-35) U/L Alkaline Phosphatase 84 (38-126) U/L Troponin I < 0.012 (0.000-0.034) ng/mL Serum Total Protein 6.9 (6.3-8.2) g/dL Albumin 3.8 (3.5-5.0) g/dL Lipase 45 (23-300) U/L Serum HCG, Qual (NEGATIVE) Urine Color (Yellow) Urine Appearance (Clear) Urine pH (4.6-8.0) Ur Specific [place] (1.005-1.030) Urine Protein (Negative) Urine Glucose (UA) (Negative) mg/dL Urine Ketones (Negative) Urine Blood (Negative) Urine Nitrite (Negative) Urine Bilirubin (Negative) Urine Urobilinogen (0.2) mg/dL Ur Leukocyte Esterase (Negative) U Hyaline Cast (Auto) (0-2) /LPF Urine Microscopic RBC (0-5) /HPF Urine Microscopic WBC (0-5) /HPF Ur Epithelial Cells (None Seen) /HPF Urine Bacteria (None Seen) /HPF Urine Culture Reflexed (NO) Urine HCG, Qual (NEGATIVE) Monoscreen (NEGATIVE) Influenza Type A Ag (NEGATIVE) Influenza Type B Ag (NEGATIVE) RSV (PCR) (NEGATIVE) SARS-CoV-2 (PCR) (NEGATIVE) 10/13/23 10/13/23 10/13/23 Range/Units 09:30 09:30 09:30 WBC (4.0-10.5) x10^3/uL RBC (4.1-5.4) x10^6/uL Hgb (12.0-16.0) g/dL Hct (35-47) % MCV (78-100) fL MCH (26-32) pg MCHC (32-36) g/dL RDW (11.5-14.0) % Plt Count (150-450) x10^3/uL MPV (7.5-11.0) fL Gran % (36.0-66.0) % Immature Gran % (Auto) (0.00-0.4) % Nucleat RBC Rel Count (0.00-0.1) % Eos # (Auto) (0-0.5) x10^3/uL Immature Gran # (Auto) (0.00-0.03) x10^3u/L Absolute Lymphs (auto) (1.0-4.6) x10^3/uL Absolute Monos (auto) (0.0-1.3) x10^3/uL Absolute Nucleated RBC (0.00-0.01) x10^3u/L Lymphocytes % (24.0-44.0) % Monocytes % (0.0-12.0) % Eosinophils % (0.00-5.0) % Basophils % (0.0-0.4) % Absolute Granulocytes (1.4-6.9) x10^3/uL Basophils # (0-0.4) x10^3/uL Sodium (137-145) mmol/L Potassium (3.5-5.1) mmol/L Chloride (98-107) mmol/L Carbon Dioxide (22-30) mmol/L Anion Gap (5-15) MEQ/L BUN (7-17) mg/dL Creatinine (0.52-1.04) mg/dL Estimated GFR ML/MIN Glucose (74-106) mg/dL Lactic Acid (0.4-2.0) Calcium (8.4-10.2) mg/dL Magnesium 1.8 (1.6-2.3) mg/dL Total Bilirubin (0.2-1.3) mg/dL AST (14-36) U/L ALT (0-35) U/L Alkaline Phosphatase (38-126) U/L Troponin I (0.000-0.034) ng/mL Serum Total Protein (6.3-8.2) g/dL Albumin (3.5-5.0) g/dL Lipase (23-300) U/L Serum HCG, Qual NEGATIVE (NEGATIVE) Urine Color (Yellow) Urine Appearance (Clear) Urine pH (4.6-8.0) Ur Specific [place] (1.005-1.030) Urine Protein (Negative) Urine Glucose (UA) (Negative) mg/dL Urine Ketones (Negative) Urine Blood (Negative) Urine Nitrite (Negative) Urine Bilirubin (Negative) Urine Urobilinogen (0.2) mg/dL Ur Leukocyte Esterase (Negative) U Hyaline Cast (Auto) (0-2) /LPF Urine Microscopic RBC (0-5) /HPF Urine Microscopic WBC (0-5) /HPF Ur Epithelial Cells (None Seen) /HPF Urine Bacteria (None Seen) /HPF Urine Culture Reflexed (NO) Urine HCG, Qual (NEGATIVE) Monoscreen (NEGATIVE) Influenza Type A Ag NEGATIVE (NEGATIVE) Influenza Type B Ag NEGATIVE (NEGATIVE) RSV (PCR) NEGATIVE (NEGATIVE) SARS-CoV-2 (PCR) NEGATIVE (NEGATIVE) 10/13/23 10/13/23 10/13/23 Range/Units 09:30 12:29 12:49 WBC (4.0-10.5) x10^3/uL RBC (4.1-5.4) x10^6/uL Hgb (12.0-16.0) g/dL Hct (35-47) % MCV (78-100) fL MCH (26-32) pg MCHC (32-36) g/dL RDW (11.5-14.0) % Plt Count (150-450) x10^3/uL MPV (7.5-11.0) fL Gran % (36.0-66.0) % Immature Gran % (Auto) (0.00-0.4) % Nucleat RBC Rel Count (0.00-0.1) % Eos # (Auto) (0-0.5) x10^3/uL Immature Gran # (Auto) (0.00-0.03) x10^3u/L Absolute Lymphs (auto) (1.0-4.6) x10^3/uL Absolute Monos (auto) (0.0-1.3) x10^3/uL Absolute Nucleated RBC (0.00-0.01) x10^3u/L Lymphocytes % (24.0-44.0) % Monocytes % (0.0-12.0) % Eosinophils % (0.00-5.0) % Basophils % (0.0-0.4) % Absolute Granulocytes (1.4-6.9) x10^3/uL Basophils # (0-0.4) x10^3/uL Sodium (137-145) mmol/L Potassium (3.5-5.1) mmol/L Chloride (98-107) mmol/L Carbon Dioxide (22-30) mmol/L Anion Gap (5-15) MEQ/L BUN (7-17) mg/dL Creatinine (0.52-1.04) mg/dL Estimated GFR ML/MIN Glucose (74-106) mg/dL Lactic Acid (0.4-2.0) Calcium (8.4-10.2) mg/dL Magnesium (1.6-2.3) mg/dL Total Bilirubin (0.2-1.3) mg/dL AST (14-36) U/L ALT (0-35) U/L Alkaline Phosphatase (38-126) U/L Troponin I (0.000-0.034) ng/mL Serum Total Protein (6.3-8.2) g/dL Albumin (3.5-5.0) g/dL Lipase (23-300) U/L Serum HCG, Qual (NEGATIVE) Urine Color Yellow (Yellow) Urine Appearance Cloudy A (Clear) Urine pH 6.0 (4.6-8.0) Ur Specific [place] 1.010 (1.005-1.030) Urine Protein 30 (Negative) Urine Glucose (UA) Negative (Negative) mg/dL Urine Ketones 15 A (Negative) Urine Blood Moderate A (Negative) Urine Nitrite Positive A (Negative) Urine Bilirubin Negative (Negative) Urine Urobilinogen 1.0 A (0.2) mg/dL Ur Leukocyte Esterase Large A (Negative) U Hyaline Cast (Auto) 3-5 A (0-2) /LPF Urine Microscopic RBC 0-2 (0-5) /HPF Urine Microscopic WBC 51-100 A (0-5) /HPF Ur Epithelial Cells Few (None Seen) /HPF Urine Bacteria Many A (None Seen) /HPF Urine Culture Reflexed YES (NO) Urine HCG, Qual NEGATIVE (NEGATIVE) Monoscreen NEGATIVE (NEGATIVE) Influenza Type A Ag (NEGATIVE) Influenza Type B Ag (NEGATIVE) RSV (PCR) (NEGATIVE) SARS-CoV-2 (PCR) (NEGATIVE) 10/13/23 10/13/23 10/13/23 Range/Units 13:33 13:40 15:24 WBC (4.0-10.5) x10^3/uL RBC (4.1-5.4) x10^6/uL Hgb (12.0-16.0) g/dL Hct (35-47) % MCV (78-100) fL MCH (26-32) pg MCHC (32-36) g/dL RDW (11.5-14.0) % Plt Count (150-450) x10^3/uL MPV (7.5-11.0) fL Gran % (36.0-66.0) % Immature Gran % (Auto) (0.00-0.4) % Nucleat RBC Rel Count (0.00-0.1) % Eos # (Auto) (0-0.5) x10^3/uL Immature Gran # (Auto) (0.00-0.03) x10^3u/L Absolute Lymphs (auto) (1.0-4.6) x10^3/uL Absolute Monos (auto) (0.0-1.3) x10^3/uL Absolute Nucleated RBC (0.00-0.01) x10^3u/L Lymphocytes % (24.0-44.0) % Monocytes % (0.0-12.0) % Eosinophils % (0.00-5.0) % Basophils % (0.0-0.4) % Absolute Granulocytes (1.4-6.9) x10^3/uL Basophils # (0-0.4) x10^3/uL Sodium (137-145) mmol/L Potassium (3.5-5.1) mmol/L Chloride (98-107) mmol/L Carbon Dioxide (22-30) mmol/L Anion Gap (5-15) MEQ/L BUN (7-17) mg/dL Creatinine (0.52-1.04) mg/dL Estimated GFR ML/MIN Glucose (74-106) mg/dL Lactic Acid 0.6 (0.4-2.0) Calcium (8.4-10.2) mg/dL Magnesium (1.6-2.3) mg/dL Total Bilirubin (0.2-1.3) mg/dL AST (14-36) U/L ALT (0-35) U/L Alkaline Phosphatase (38-126) U/L Troponin I < 0.012 < 0.012 (0.000-0.034) ng/mL Serum Total Protein (6.3-8.2) g/dL Albumin (3.5-5.0) g/dL Lipase (23-300) U/L Serum HCG, Qual (NEGATIVE) Urine Color (Yellow) Urine Appearance (Clear) Urine pH (4.6-8.0) Ur Specific [place] (1.005-1.030) Urine Protein (Negative) Urine Glucose (UA) (Negative) mg/dL Urine Ketones (Negative) Urine Blood (Negative) Urine Nitrite (Negative) Urine Bilirubin (Negative) Urine Urobilinogen (0.2) mg/dL Ur Leukocyte Esterase (Negative) U Hyaline Cast (Auto) (0-2) /LPF Urine Microscopic RBC (0-5) /HPF Urine Microscopic WBC (0-5) /HPF Ur Epithelial Cells (None Seen) /HPF Urine Bacteria (None Seen) /HPF Urine Culture Reflexed (NO) Urine HCG, Qual (NEGATIVE) Monoscreen (NEGATIVE) Influenza Type A Ag (NEGATIVE) Influenza Type B Ag (NEGATIVE) RSV (PCR) (NEGATIVE) SARS-CoV-2 (PCR) (NEGATIVE) 10/13/23 10/14/23 Range/Units 15:40 04:55 WBC 6.5 (4.0-10.5) x10^3/uL RBC 3.77 L (4.1-5.4) x10^6/uL Hgb 12.9 (12.0-16.0) g/dL Hct 39.4 (35-47) % MCV 104.5 H (78-100) fL MCH 34.2 H (26-32) pg MCHC 32.7 (32-36) g/dL RDW 12.5 (11.5-14.0) % Plt Count 166 (150-450) x10^3/uL MPV 11.1 H (7.5-11.0) fL Gran % 72.6 H (36.0-66.0) % Immature Gran % (Auto) 0.3 (0.00-0.4) % Nucleat RBC Rel Count 0.0 (0.00-0.1) % Eos # (Auto) 0.05 (0-0.5) x10^3/uL Immature Gran # (Auto) 0.02 (0.00-0.03) x10^3u/L Absolute Lymphs (auto) 0.97 L (1.0-4.6) x10^3/uL Absolute Monos (auto) 0.71 (0.0-1.3) x10^3/uL Absolute Nucleated RBC 0.00 (0.00-0.01) x10^3u/L Lymphocytes % 15.0 L (24.0-44.0) % Monocytes % 11.0 (0.0-12.0) % Eosinophils % 0.8 (0.00-5.0) % Basophils % 0.3 (0.0-0.4) % Absolute Granulocytes 4.70 (1.4-6.9) x10^3/uL Basophils # 0.02 (0-0.4) x10^3/uL Sodium (137-145) mmol/L Potassium 3.6 (3.5-5.1) mmol/L Chloride (98-107) mmol/L Carbon Dioxide (22-30) mmol/L Anion Gap (5-15) MEQ/L BUN (7-17) mg/dL Creatinine (0.52-1.04) mg/dL Estimated GFR ML/MIN Glucose (74-106) mg/dL Lactic Acid (0.4-2.0) Calcium (8.4-10.2) mg/dL Magnesium (1.6-2.3) mg/dL Total Bilirubin (0.2-1.3) mg/dL AST (14-36) U/L ALT (0-35) U/L Alkaline Phosphatase (38-126) U/L Troponin I (0.000-0.034) ng/mL Serum Total Protein (6.3-8.2) g/dL Albumin (3.5-5.0) g/dL Lipase (23-300) U/L Serum HCG, Qual (NEGATIVE) Urine Color (Yellow) Urine Appearance (Clear) Urine pH (4.6-8.0) Ur Specific [place] (1.005-1.030) Urine Protein (Negative) Urine Glucose (UA) (Negative) mg/dL Urine Ketones (Negative) Urine Blood (Negative) Urine Nitrite (Negative) Urine Bilirubin (Negative) Urine Urobilinogen (0.2) mg/dL Ur Leukocyte Esterase (Negative) U Hyaline Cast (Auto) (0-2) /LPF Urine Microscopic RBC (0-5) /HPF Urine Microscopic WBC (0-5) /HPF Ur Epithelial Cells (None Seen) /HPF Urine Bacteria (None Seen) /HPF Urine Culture Reflexed (NO) Urine HCG, Qual (NEGATIVE) Monoscreen (NEGATIVE) Influenza Type A Ag (NEGATIVE) Influenza Type B Ag (NEGATIVE) RSV (PCR) (NEGATIVE) SARS-CoV-2 (PCR) (NEGATIVE) Radiology Exams: Radiology Procedures Category Date Time Status ABDOMEN AND PELVIS W/0 CONTRAS [CT] Stat Exams 10/13/23 09:21 Completed Assessment/Plan (1) Pyelonephritis Current Visit: Yes Status: Acute Assessment & Plan: -Urine culture pending -Ceftriaxone started in ED, will continue -CT abd/pelvis showing left renal edema with stranding, non-obstructing left renal calculus, and incidental splenomegaly. -NS @ 125ml/hr -Monitor I&O 10/14: -Urine culture NGTD -Will continue abx until final read, patient remains febrile -WBC now wnl Code(s): N12 - TUBULO-INTERSTITIAL NEPHRITIS, NOT SPCF ACUTE OR CHRONIC (2) Leukocytosis Current Visit: Yes Status: Acute Assessment & Plan: Most likely secondary to pyelonephritis, start empiric antibiotic, follow cultures Code(s): D72.829 - ELEVATED WHITE BLOOD CELL COUNT, UNSPECIFIED (3) Acidosis Current Visit: Yes Status: Acute Assessment & Plan: -secondary to gastrointestinal loss/infection -carbon dioxide at 18 -sodium bicarb -IVF 10/14: -improving, will continue bicarb and IVF Code(s): E87.20 - ACIDOSIS, UNSPECIFIED (4) Hypokalemia due to excessive gastrointestinal loss of potassium Current Visit: Yes Status: Acute Assessment & Plan: -Secondary to gastrointestinal loss -Will replenish -Tele -Monitor renal/lytes daily -treat underlying N/V with anti-emetics 10/14: -resolved Code(s): E87.6 - HYPOKALEMIA (5) Left nephrolithiasis Current Visit: Yes Status: Acute Assessment & Plan: -noted on CT scan, 1.3 cm, nonobstructing Code(s): N20.0 - CALCULUS OF KIDNEY (6) Nausea and vomiting Current Visit: Yes Status: Acute Assessment & Plan: -Zofran, compazine prn Code(s): R11.2 - NAUSEA WITH VOMITING, UNSPECIFIED (7) Splenomegaly Current Visit: Yes Status: Acute Assessment & Plan: -noted on CT, measuring 13.7cm -mono spot -PLT WNL -Repeat US as OP Code(s): N12 - TUBULO-INTERSTITIAL NEPHRITIS, NOT SPCF ACUTE OR CHRONIC (2) Leukocytosis Current Visit: Yes Status: Acute Code(s): D72.829 - ELEVATED WHITE BLOOD CELL COUNT, UNSPECIFIED (3) Acidosis Current Visit: Yes Status: Acute Code(s): E87.20 - ACIDOSIS, UNSPECIFIED (4) Hypokalemia due to excessive gastrointestinal loss of potassium Current Visit: Yes Status: Acute Code(s): E87.6 - HYPOKALEMIA (5) Left nephrolithiasis Current Visit: Yes Status: Acute Code(s): N20.0 - CALCULUS OF KIDNEY (6) Nausea and vomiting Current Visit: Yes Status: Acute Code(s): R11.2 - NAUSEA WITH VOMITING, UNSPECIFIED (7) Splenomegaly Current Visit: Yes Status: Acute Code(s): R16.1 - SPLENOMEGALY, NOT ELSEWHERE CLASSIFIED
[2023-10-14] MEDS: TYLENOL 325 MG PO PRN ×2 (05:14→17:30)
[2023-10-14 05:17] LABS: ALBUMIN 3.2 g/dL (3.5-5.0); BILIRUBIN,TOTAL 0.8 mg/dL (0.2-1.3); Calcium 8.2 mg/dL (8.4-10.2); Creatinine 1 0.74 mg/dL (0.52-1.04); EST GLOMERULAR FILTRATION RATE 113.7 ML/MIN; Potassium 3.5 mmol/L (3.5-5.1)
[2023-10-14] MEDS: SODIUM BICARBONATE PO SCH ×2 (09:05→21:49)
[2023-10-14] MEDS: ROCEPHIN 1 Gm-D5w 50 ml Bag** 1 G/50 ML IVPB IV SCH (09:05)
[2023-10-14] MEDS ORDERED: NORCO 5/325 MG PO PRN ×2 (12:16→12:17)
[2023-10-15] VITALS: RESP 16
[2023-10-15 04:55] LABS: Absolute Neutrophil Ct (ANC) 3.54 x10^3/uL (1.4-6.9); BASOPHIL % 0.4 % (0.0-0.4); Basophil (Absolute #) 0.02 x10^3/uL (0-0.4); Eosinophil % 1.3 % (0.00-5.0); Eosinophil (Absolute #) 0.07 x10^3/uL (0-0.5); Hematocrit 36.7 % (35-47); Hemoglobin 12.3 g/dL (12.0-16.0); IMMATURE GRAN # 0.01 x10^3u/L (0.00-0.03); IMMATURE GRAN % 0.2 % (0.00-0.4); Lymphocyte (Absolute #) 1.09 x10^3/uL (1.0-4.6); Lymphocytes % 20.4 % (24.0-44.0); Mean Cell Volume 103.1 fL (78-100); Mean Corpuscular Hemoglobin 34.6 pg (26-32); Mean Corpuscular Hgb Concent. 33.5 g/dL (32-36); Mean Platelet Volume 11.9 fL (7.5-11.0); Monocyte (Absolute #) 0.62 x10^3/uL (0.0-1.3); Monocytes % 11.6 % (0.0-12.0); Neutrophil % 66.1 % (36.0-66.0); Platelet Count 184 x10^3/uL (150-450); Red Blood Count 3.56 x10^6/uL (4.1-5.4); Red Cell Distribution Width 12.5 % (11.5-14.0); White Blood Count 5.4 x10^3/uL (4.0-10.5)
[2023-10-15 05:10] LABS: ALBUMIN 3.1 g/dL (3.5-5.0); ANION GAP 8.8 MEQ/L (5-15); BILIRUBIN,TOTAL 0.6 mg/dL (0.2-1.3); Calcium 8.4 mg/dL (8.4-10.2); Creatinine 1 0.65 mg/dL (0.52-1.04); EST GLOMERULAR FILTRATION RATE 123.7 ML/MIN; Potassium 3.5 mmol/L (3.5-5.1); Total Protein 5.9 g/dL (6.3-8.2)
--- NOTE | 2023-10-15 05:13 | PCM.DS ---
Discharge Summary Date of Admission: 10/13/23 14:18 Date of Discharge: 10/15/23 Admitting Physician: CHUNG CASTANEDA MD Primary Care Provider: NO FAMILY DOCTOR Allergies Allergies latex Allergy (Verified 10/13/23 14:35) Hospital Summary - Hospital Course Hospital Course: Ms. Zelaya is a 28 year old female with a pmhx of prolapsed heart valve and possible clotting disorder per patient (hemorrhage s/p csection x 2), who presented to ED 10/13/23 with complaints of two day history of nausea, vomiting, fever/chills, and abdominal pain. Patient reports pain is in the LUQ with radiation to the left flank, moderate in intensity. No aggravating factors. Pain medications have helped some. She denies urinary frequency, hematuria, or dysuria. Denies cough, sob, cp, RIVERA, dizziness,or diarrhea. In ED, patient febrile and tachycardic. CT of the abd/pelvis demonstrating left renal edema with stranding. Also nonobstructing left renal calculus. Incidental splen omegaly. Lab findings remarkable for leukocytosis with WBC at 11.4, mild hyponatremia at 135, hypokalemia at 3.4, and carbon dioxide at 18. UA suspicious for infection. Patient given 1 liter fluid bolus, Ceftriaxone, and zofran. Admitted with acute pyelonephritis, continued ceftriaxone pending ucult, anti- emetics, and IVF. Patient with noted improvement in abdomina/flank pain, no urinary symptoms, no longer with nausea/vomiting. Labs have stabilized. Ucult with [facility] and CT showed changes of Pyelo. Will discharge on cefdinir. Advised PCP follow up for resolution check. Discharge Note New Diagnosis: Acute pyelonephritis New Medications: Cefdinir Follow Up: PCP Latest Assessment & Plan (1) Pyelonephritis Current Visit: Yes Status: Acute Assessment & Plan: -Urine culture pending -Ceftriaxone started in ED, will continue -CT abd/pelvis showing left renal edema with stranding, non-obstructing left renal calculus, and incidental splenomegaly. -NS @ 125ml/hr -Monitor I&O 10/14: -Urine culture NGTD -Will continue abx until final read, patient remains febrile -WBC now wnl Code(s): N12 - TUBULO-INTERSTITIAL NEPHRITIS, NOT SPCF ACUTE OR CHRONIC (2) Leukocytosis Current Visit: Yes Status: Acute Assessment & Plan: Most likely secondary to pyelonephritis, start empiric antibiotic, follow cultures Code(s): D72.829 - ELEVATED WHITE BLOOD CELL COUNT, UNSPECIFIED (3) Acidosis Current Visit: Yes Status: Acute Assessment & Plan: -secondary to gastrointestinal loss/infection -carbon dioxide at 18 -sodium bicarb -IVF 10/14: -improving, will continue bicarb and IVF Code(s): E87.20 - ACIDOSIS, UNSPECIFIED (4) Hypokalemia due to excessive gastrointestinal loss of potassium Current Visit: Yes Status: Acute Assessment & Plan: -Secondary to gastrointestinal loss -Will replenish -Tele -Monitor renal/lytes daily -treat underlying N/V with anti-emetics 10/14: -resolved Code(s): E87.6 - HYPOKALEMIA (5) Left nephrolithiasis Current Visit: Yes Status: Acute Assessment & Plan: -noted on CT scan, 1.3 cm, nonobstructing Code(s): N20.0 - CALCULUS OF KIDNEY (6) Nausea and vomiting Current Visit: Yes Status: Acute Assessment & Plan: -Zofran, compazine prn Code(s): R11.2 - NAUSEA WITH VOMITING, UNSPECIFIED (7) Splenomegaly Current Visit: Yes Status: Acute Assessment & Plan: -noted on CT, measuring 13.7cm -mono spot -PLT WNL -Repeat US as OP I spent 35 minutes [id number] with the patient on the day of discharge performing discharge exam, discussing hospital stay and discharge instructions with patient and caregivers, preparation of discharge records, prescriptions & referral forms and addressing any questions/concerns the patient had as documented above. - Vitals & Intake/Output Vital Signs: Vital Signs Temperature 98.0 F 10/14/23 23:59 Pulse Rate 88 10/14/23 23:59 Respiratory Rate 16 10/15/23 04:00 Blood Pressure 111/59 10/14/23 23:59 O2 Sat by Pulse Oximetry 98 10/14/23 23:59 Intake & Output: Intake & Output 10/12/23 10/13/23 10/14/23 10/15/23 11:59 11:59 11:59 11:59 Intake Total 3156 1414 Balance 3156 1414 Weight 97.2 kg 97.2 kg - Lab Result Diagrams: 10/15/23 04:25 10/15/23 04:25 Lab Results-Last 24 Hrs: Lab Results-Last 24 Hours 10/14/23 10/14/23 10/15/23 Range/Units 04:55 04:55 04:25 WBC 6.5 5.4 (4.0-10.5) x10^3/uL RBC 3.77 L 3.56 L (4.1-5.4) x10^6/uL Hgb 12.9 12.3 (12.0-16.0) g/dL Hct 39.4 36.7 (35-47) % MCV 104.5 H 103.1 H (78-100) fL MCH 34.2 H 34.6 H (26-32) pg MCHC 32.7 33.5 (32-36) g/dL RDW 12.5 12.5 (11.5-14.0) % Plt Count 166 184 (150-450) x10^3/uL MPV 11.1 H 11.9 H (7.5-11.0) fL Gran % 72.6 H 66.1 H (36.0-66.0) % Immature Gran % (Auto) 0.3 0.2 (0.00-0.4) % Nucleat RBC Rel Count 0.0 0.0 (0.00-0.1) % Eos # (Auto) 0.05 0.07 (0-0.5) x10^3/uL Immature Gran # (Auto) 0.02 0.01 (0.00-0.03) x10^3u/L Absolute Lymphs (auto) 0.97 L 1.09 (1.0-4.6) x10^3/uL Absolute Monos (auto) 0.71 0.62 (0.0-1.3) x10^3/uL Absolute Nucleated RBC 0.00 0.00 (0.00-0.01) x10^3u/L Lymphocytes % 15.0 L 20.4 L (24.0-44.0) % Monocytes % 11.0 11.6 (0.0-12.0) % Eosinophils % 0.8 1.3 (0.00-5.0) % Basophils % 0.3 0.4 (0.0-0.4) % Absolute Granulocytes 4.70 3.54 (1.4-6.9) x10^3/uL Basophils # 0.02 0.02 (0-0.4) x10^3/uL Sodium 135 L (137-145) mmol/L Potassium 3.5 (3.5-5.1) mmol/L Chloride 111 H (98-107) mmol/L Carbon Dioxide 19 L (22-30) mmol/L Anion Gap 8.0 (5-15) MEQ/L BUN 7 (7-17) mg/dL Creatinine 0.74 (0.52-1.04) mg/dL Estimated GFR 113.7 ML/MIN Glucose 100 (74-106) mg/dL Calcium 8.2 L (8.4-10.2) mg/dL Total Bilirubin 0.80 (0.2-1.3) mg/dL AST 32 (14-36) U/L ALT 27 (0-35) U/L Alkaline Phosphatase 96 (38-126) U/L Serum Total Protein 6.0 L (6.3-8.2) g/dL Albumin 3.2 L (3.5-5.0) g/dL Micro Results-Entire Visit: Microbiology 10/13/23 12:29 Urine Culture - Preliminary Urine, Void NO GROWTH TO DATE - Radiology Exams Ordered Rad Exams-Entire Visit: Radiology Procedures Category Date Time Status ABDOMEN AND PELVIS W/0 CONTRAS [CT] Stat Exams 10/13/23 09:21 Completed Discharge Exam General Appearance: no apparent distress Neurologic Exam: alert, oriented x 3, cooperative Eye Exam: PERRL Ears, Nose, Throat Exam: normal ENT inspection Neck Exam: normal inspection Respiratory Exam: normal breath sounds, lungs clear Cardiovascular Exam: regular rate/rhythm, normal heart sounds Gastrointestinal/Abdomen Exam: soft, normal bowel sounds Pelvic Exam: deferred Rectal Exam: deferred Back Exam: normal inspection Extremity Exam: normal inspection Skin Exam: normal color Final Diagnosis/Problem List - Final Discharge Diagnosis/Problem (1) Pyelonephritis Current Visit: Yes Status: Acute Code(s): N12 - TUBULO-INTERSTITIAL NEP HRITIS, NOT SPCF ACUTE OR CHRONIC (2) Leukocytosis Current Visit: Yes Status: Acute Code(s): D72.829 - ELEVATED WHITE BLOOD CELL COUNT, UNSPECIFIED (3) Acidosis Current Visit: Yes Status: Acute Code(s): E87.20 - ACIDOSIS, UNSPECIFIED (4) Hypokalemia due to excessive gastrointestinal loss of potassium Current Visit: Yes Status: Acute Code(s): E87.6 - HYPOKALEMIA (5) Left nephrolithiasis Current Visit: Yes Status: Acute Code(s): N20.0 - CALCULUS OF KIDNEY (6) Nausea and vomiting Current Visit: Yes Status: Acute Code(s): R11.2 - NAUSEA WITH VOMITING, UNSPECIFIED (7) Splenomegaly Current Visit: Yes Status: Acute Code(s): R16.1 - SPLENOMEGALY, NOT ELSEWHERE CLASSIFIED - Discharge Disposition: Home, Self-Care Condition: Stable Prescriptions: New Cefdinir 300 mg PO BID 7 Days #14 cap Instructions: Urinary Tract Infection, Adult (DC) Follow up with: RAJ RIVAS NP [NON-STAFF PHY W/O PRIVILEGES] - 10/22/23 2:00 pm Forms: Discharge Instructions
[2023-10-15] MEDS: Sodium Chloride 0.9% 1000 ML 1,000 ML IV SCH (06:08)
[2023-10-15] MEDS: TYLENOL 325 MG PO PRN (08:10)
[2023-10-15] MEDS: SODIUM BICARBONATE PO SCH (09:04)
[2023-10-15] MEDS: ROCEPHIN 1 Gm-D5w 50 ml Bag** 1 G/50 ML IVPB IV SCH (09:04)
[2023-10-15 11:42] VITALS: BP 108/67; PULSE 112; TEMP 97.1; O2SAT 98
== END 2023-10-15 12:30 | disposition home or self-care (01) ==
LOC: ED 08:55 → MED SURG 14:18
PROVIDERS: ADMIT Internal Medicine; ATTEND Internal Medicine
DX: N12 Tubulo-interstitial nephritis, not specified as acute or chronic (principal); D72.829 Elevated white blood cell count, unspecified; E87.20 Acidosis, unspecified; E87.6 Hypokalemia; N20.0 Calculus of kidney; R11.2 Nausea with vomiting, unspecified; R16.1 Splenomegaly, not elsewhere classified; R00.0 Tachycardia, unspecified; Z20.828 Contact with and (suspected) exposure to other viral communicable diseases
CPT/HCPCS: 0241U; 36415; 74176; 80053; 81001; 81025; 83605; 83690; 83735; 84132; 84484; 84703; 85025; 86308; 87077; 87086; 87186; 96374; 96375; 99284; Q3014; 93268; J0696; J1885; J2405; A9270-GY; G0378